=== PATIENT | female | born 1970 | race Caucasian/White ===

== ENCOUNTER 2021-06-16 22:27 | Outpatient (CLI) | payer OTHER | END 2021-06-16 22:28 | disposition critical access hospital (66) | LOC: EMS 22:27 | DX: R11.2 Nausea with vomiting, unspecified (principal); R10.13 Epigastric pain | CPT/HCPCS: A0425; A0427 ==

== ENCOUNTER 2021-06-16 22:53 | Emergency (ER) | payer OTHER ==
[2021-06-16] MEDS ORDERED: SODIUM CHLORIDE 0.9% 1,000 ML IV STA (23:08)
[2021-06-16] MEDS ORDERED: ONDANSETRON 4 MG/2 ML VIAL IVP STA (23:20)
--- NOTE | 2021-06-16 23:22 | ED Physician Documentation ---
PD HPI CHEST PAIN - Stated complaint Stated Complaint: CHEST PX/N - Chief complaint Chief Complaint: Abd Pain - History obtained from History obtained from: Patient - History of Present Illness Quality: Sharp - Additional information Additional information: Patient is a 50-year-old female with a past medical history significant for 2 previous Coronary stents presenting for evaluation of his midsternal chest pain starting at 8 PM while she was having dinner.Patient states that the pain has been constant. She is unsure of anything that makes the pain better or worse. She has associated nausea and emesis x1. She does admit to alcohol use this evening consisting of 4 vodka martinis as well as marijuana use.The pain is sharp. It does not radiate. Patient describes having Left arm pain when needing her coronary stentsWhich she does not have currently. Patient denies recent history of similar pains. Patient reports compliance with her medications including aspirin, statin and beta-eloise. Patient does not take any other blood thinners.Patient denies recent fever, cough, congestion, Difficulty breathing. Patient does endorse upper abdominal pain. Denies lower extremity swelling. Patient has had a hysterectomy. Review of Systems Ten Systems: 10 systems reviewed and negative Constitutional: denies: Fever Cardiac: reports: Chest pain / pressure Respiratory: denies: Dyspnea, Cough GI: reports: Abdominal Pain, Nausea, Vomiting : denies: Dysuria Musculoskeletal: denies: Back pain, Extremity pain Neurologic: denies: Syncope PD PAST MEDICAL HISTORY - Past Medical History Cardiovascular: Coronary artery disease (2 stents) - Present Medications Home Medications: Ambulatory Orders Medication Instructions Recorded Confirmed Albuterol Sulfate [Proair Hfa 06/16/21 Inhaler] Aspirin [Aspirin EC] 06/16/21 Atenolol [Tenormin] 06/16/21 Leflunomide [Arava] 06/16/21 Levothyroxine [Synthroid] 06/16/21 Rosuvastatin Calcium [Crestor] 06/16/21 06/16/21 Secukinumab [Cosentyx Pen] 06/16/21 Venlafaxine HCl [Effexor Xr] 06/16/21 Furosemide [Lasix] 1 tab ORAL DAILY 06/17/21 06/17/21 - Allergies Allergies/Adverse Reactions: Allergies Allergy/AdvReac Type Severity Reaction Status Date / Time meperidine [From Demerol] Allergy Unknown Verified 02/26/22 23:05 Penicillins Allergy Unknown Verified 06/16/21 23:04 Sulfa (Sulfonamide Allergy Unknown Verified 06/16/21 23:04 Antibiotics) PD ED PE NORMAL - General General: Alert and oriented X 3, No acute distress, Well developed/nourished - HEENT HEENT: Atraumatic - Cardiac Cardiac: RRR, Strong equal pulses, Other (No chest wall tenderness) - Respiratory Respiratory: No respiratory distress, Clear bilaterally - Abdomen Abdomen: Soft, Other (Epigastric tenderness) - Back Back: No CVA TTP - Derm Derm: Normal color - Extremities Extremities: No edema, Other (Lower extremity pulses intact) - Neuro Neuro: Alert and oriented X 3 Results - Vitals Vitals: Vital Signs - 24 hr 06/16/21 06/16/21 06/16/21 22:53 23:06 23:35 Temperature 36.8 C Heart Rate 92 90 89 Respiratory 14 20 18 Rate Blood Pressure 140/72 H 142/90 H 119/76 O2 Saturation 94 99 96 06/17/21 06/17/21 06/17/21 00:00 00:02 00:47 Temperature Heart Rate 90 88 Respiratory 18 16 Rate Blood Pressure 116/78 123/79 O2 Saturation 85 L 99 97 06/17/21 02:04 Temperature 36.1 C L Heart Rate 78 Respiratory 16 Rate Blood Pressure 143/77 H O2 Saturation 99 Oxygen O2 Source Room air - EKG (time done) 22:59 Rhythm: NSR Intervals: Normal FL Ischemia: Normal ST segments. No: ST depression Other comments: Other comments (T wave flattening in V2 and V3) Compare to prior EKG: Old EKG unavailable 0136 Intervals: Normal FL Ischemia: T wave inversion, Other (Minimally inverted T wave in V2, flat T wave in V3 ) Compare to prior EKG: Unchanged from prior EKG - Labs Labs: Laboratory Tests 06/16/21 06/16/21 06/16/21 23:17 23:17 23:17 WBC 9.9 RBC 4.11 L Hgb 12.4 Hct 37.3 MCV 90.8 MCH 30.2 MCHC 33.2 RDW 13.2 Plt Count 273 MPV 9.2 Neut # (Auto) 5.2 Lymph # (Auto) 3.4 [place] # (Auto) 0.9 Eos # (Auto) 0.2 Baso # (Auto) 0.1 Absolute Nucleated RBC 0.00 Nucleated RBC % 0.0 Sodium 137 Potassium 4.0 Chloride 101 Carbon Dioxide 24 Anion Gap 12.0 BUN 13 Creatinine 0.7 Estimated GFR (MDRD) 89 Glucose 161 H Calcium 9.8 Magnesium 2.0 Total Bilirubin 0.4 AST 39 ALT 50 Alkaline Phosphatase 69 Troponin I High Sens 4.0 Total Protein 6.9 Albumin 4.1 Globulin 2.8 Albumin/Globulin Ratio 1.5 Lipase 35 Ethyl Alcohol 66.5 06/17/21 01:10 WBC RBC Hgb Hct MCV MCH MCHC RDW Plt Count MPV Neut # (Auto) Lymph # (Auto) [place] # (Auto) Eos # (Auto) Baso # (Auto) Absolute Nucleated RBC Nucleated RBC % Sodium Potassium Chloride Carbon Dioxide Anion Gap BUN Creatinine Estimated GFR (MDRD) Glucose Calcium Magnesium Total Bilirubin AST ALT Alkaline Phosphatase Troponin I High Sens 5.0 Total Protein Albumin Globulin Albumin/Globulin Ratio Lipase Ethyl Alcohol PD MEDICAL DECISION MAKING - ED course ED course: 1215: Patient is sleeping and appears to be resting comfortably. I woke her up to review her test results, EKG and chest x-ray.High-sensitivity troponin is negative. Patient's heart score is 3 For age and risk factors. No ST elevation noted on her EKG, no ST depression.Patient does report that she continues to have burning chest pain. She does not have any left arm pain at that she has previously experienced when needing cardiac stents. She reports having a stress test 2 weeks ago because at that time she was having episodes of left arm pain. The test was ordered by her primary care doctor. She is scheduled to see her hydrographical technical officer this week. She has not had any episodes of left arm pain in a few weeks. Her current symptoms seem atypical for ACS given her previous history of symptoms and her high-sensitivity troponin is negative which is reassuring. As she has had some alcohol use this evening and her timeline may not be entirely accurate, I will obtain a 2-hour high-sensitivity troponin.Patient is agreeable to this plan. 0145: Repeat troponin and EKG are unchanged. Patient remains resting comfortably and states her pain has improved. She is able to give a clear history and states that her pain started approximately 20 minutes after using a Vape pen that she thought had Cannabis. She states that the chest pain and nausea and vomiting started soon after.She is unsure of exactly what was in the vape pen.She does not use illicit substances regularly. She denies regular alcohol use. She is visiting her family in town.She is from the [place] area and is scheduled to see her hydrographical technical officer later this week for clearance for an upcoming surgery related to arthritis.Patient was given strict return precautions. At this time I do not believe her symptoms are related to ACS, PE or a dissection. She does not have abdominal tenderness on exam. She does not have respiratory complaints. Her vital signs are stable.She is clinically sober and appears appropriate for discharge. Departure - Departure Disposition: Home, Self Care Clinical Impression: Alcohol use Chest pain Qualifiers: Chest pain type: unspecified Qualified Code(s): R07.9 - Chest pain, unspecified Condition: Stable Instructions: ED Chest Pain O Penelope Comments: Please follow-up with your primary care doctor and hydrographical technical officer this week. The exact cause of your chest pain is unclear but it does not appear to be a heart attack at this time. Please avoid any alcohol use until Seen by your card iologist. Please abstain from using any illicit substances. Please return to the emergency department if your pain returns or you develop new pain such as in your left arm, jaw or back, Shortness of breath, abdominal pain, vomiting, headache or with any concerns. Discharge Date/Time: 06/17/21 02:19
[2021-06-16 23:25] LABS: BASOPHILS # (AUTO) 0.1 10^3/uL (0.0-0.1); BASOPHILS % (AUTO) 0.8 %; EOSINOPHILS # (AUTO) 0.2 10^3/uL (0.0-0.7); EOSINOPHILS % (AUTO) 2.2 %; HCT - HEMATOCRIT 37.3 % (37.0-47.0); HGB - HEMOGLOBIN 12.4 g/dL (12.0-16.0); LYMPHOCYTES # (AUTO) 3.4 10^3/uL (1.5-3.5); LYMPHOCYTES % (AUTO) 34.7 %; MEAN CORPUSCULAR HEMOGLOBIN 30.2 pg (27.0-31.0); MEAN CORPUSCULAR HGB CONC 33.2 g/dL (32.0-36.0); MEAN CORPUSCULAR VOLUME 90.8 fL (81.0-99.0); MEAN PLATELET VOLUME 9.2 fL (7.9-10.8); MONOCYTES # (AUTO) 0.9 10^3/uL (0.0-1.0); MONOCYTES % (AUTO) 9.1 %; NEUTROPHILS # (AUTO) 5.2 10^3/uL (1.5-6.6); NEUTROPHILS % (AUTO) 52.8 %; PLT - PLATELET COUNT 273 10^3/uL (130-450); RED BLOOD COUNT 4.11 10^6/uL (4.20-5.40); RED CELL DISTRIBUTION WIDTH 13.2 % (12.0-15.0); WHITE BLOOD COUNT 9.9 x10^3/uL (4.8-10.8)
--- NOTE | 2021-06-16 23:31 | XRAY Report ---
PROCEDURE: Chest 1 View X-Ray INDICATIONS: CP TECHNIQUE: One view of the chest was acquired. COMPARISON: None FINDINGS: Surgical changes and devices: None. Lungs and pleura: No pleural effusions or pneumothorax. Lungs are clear. Mediastinum: Mediastinal contours appear normal. Heart size is top normal. Bones and chest wall: No suspicious bony lesions. Overlying soft tissues appear unremarkable. IMPRESSION: No evidence acute pulmonary process. Reviewed by: Tay Kan MD on 06/16/2021 11:31 PM PST Approved by: Tay Kan MD on 06/16/2021 11:31 PM [facility] Station ID: [id number]
[2021-06-16 23:36] LABS: ALBUMIN 4.1 g/dL (3.2-5.5); ALBUMIN/GLOBULIN RATIO 1.5 (1.0-2.2); BILIRUBIN,TOTAL 0.4 mg/dL (0.2-1.0); CALCIUM 9.8 mg/dL (8.5-10.3); CREATININE 0.7 mg/dL (0.4-1.0); ETOH - ETHANOL 66.5 mg/dL; TOTAL PROTEIN 6.9 g/dL (6.7-8.2)
[2021-06-17] MEDS ORDERED: ASPIRIN CHEW 81 MG TABLET PO STA (00:26)
[2021-06-17] MEDS ORDERED: FAMOTIDINE 20 MG/2 ML VIAL IVP STA (00:26)
[2021-06-17 02:05] VITALS: BP 143/77
== END 2021-06-17 02:19 | disposition home or self-care (01) ==
LOC: ED 22:53
DX: R07.89 Other chest pain (principal); Z95.5 Presence of coronary angioplasty implant and graft; I25.10 Atherosclerotic heart disease of native coronary artery without angina pectoris
CPT/HCPCS: 36415; 71045; 80053; 80320; 83690; 83735; 84484; 85025; 93005; 96374; 96375; 99284; A9270